=== PATIENT | male | born 1955 | race Hispanic/Latino ===

== ENCOUNTER → 2024-05-13 | Outpatient (REF) | payer MEDICARE ==
[~2024-05-13] MED LIST: ASPIRIN81 MG PO; CENTRUM SILVER1 EAC3 PO; IOPAMIDOL 370 MG/ML 100 ML INFUS..BTL INJ ONE; JANUMET 50-1,01 EACH PO; LISINOPRIL10 MG PO; PRAVASTATIN SOD10 MG PO
[2024-05-13 12:35] LABS: CREATININE, SERUM 0.96 mg/dL (0.72-1.25)
== END ==
LOC: CT 11:50
PROVIDERS: ATTEND Nurse Practitioner Family
DX: R10.9 Unspecified abdominal pain (principal)
CPT/HCPCS: 36415; 74177; 82565; 84520; Q9967